=== PATIENT | male | born 1960 | race Caucasian/White ===

== ENCOUNTER → 2018-08-03 | Outpatient (CLI) | payer BC ==
--- NOTE | 2018-08-03 14:07 | RAD ---
Pelvis with left hip, 3 views, 08/03/2018: HISTORY: Fall, left hip pain No recent fracture or dislocation is identified. There is mild narrowing of the hip joints bilaterally with mild marginal spurring. Mild deformity along the margin of the left greater trochanter is compatible with old trauma and/or spurring. IMPRESSION: 1. 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 2. No acute bony abnormality is detected. Electronically signed by: Isidoro Rasmussen MD (08/03/2018 2:03 PM) [facility]
== END | disposition home or self-care (01) ==
LOC: PMG 07:20
PROVIDERS: ATTEND Physician Assistant Medical
DX: M16.0 Bilateral primary osteoarthritis of hip (principal)
CPT/HCPCS: 73502